=== PATIENT | male | born 1945 | race Caucasian/White ===

== ENCOUNTER 2016-05-06 16:04 | Inpatient (IN) ==
--- NOTE | 2016-05-06 16:22 | Emergency Department Note ---
Disposition Clinical Impression: Near syncope, Bradycardia Disposition: Admitted As Inpatient Condition: Fair Referrals: NO,PCP [Primary Care Provider] - Forms: ED Satisfaction Letter Time of Disposition: 17:29 Syncope HPI - General Chief Complaint: ED Syncope Stated Complaint: Dizzy Spells Time Seen by Provider: 05/06/16 16:12 Source: patient, family Mode of arrival: ambulatory Limitations: no limitations Nursing Notes Reviewed: Yes Vital Signs Reviewed: Yes - History of Present Illness HPI Narrative: 70-year-old male who was at home watching TV tried to get up and suffered a near syncopal episode and became lightheaded and felt like he was given a pass out. And lasted for about 30 minutes. He continues to feel weak and a little bit lightheaded. He does have a pacemaker defibrillator. Pt Subjective Complaint: felt faint, almost passed out Onset (ago): Just [employer] Duration: minutes(s) Prodromal Symptoms: none Witnessed: yes - by bystander Context: standing up Injuries Sustained Associated with Event: none Current Symptoms: lightheaded History: none Treatments prior to arrival: none Associated trauma secondary to event: No - Related Data Allergies Allergy/AdvReac Type Severity Reaction Status Date / Time No Known Allergies Allergy Verified 05/06/16 16:19 Constitutional: Reports: weakness. Denies: fever, chills, weight change Eyes: Denies: eye pain, eye discharge, vision change ENT ED: Denies: ear pain, throat pain, dental pain, hearing loss, epistaxis, congestion, dysphagia Cardiovascular: Denies: chest pain, palpitations, dyspnea on exertion, edema, syncope Respiratory: Denies: cough, dyspnea, wheezes, hemoptysis, stridor Gastrointestinal: Denies: abdominal pain, nausea, vomiting, diarrhea, constipation, hematemesis, melena, hematochezia Genitourinary: Denies: urgency, dysuria, frequency, hematuria Musculoskeletal: Denies: back pain, neck pain, arthralgia, myalgia Integumentary: Denies: rash, abrasion, lesions Neurological: Reports: vertigo, other (Near-syncope). Denies: headache, weakness, numbness, paresthesias, confusion, abnormal gait Psychiatric: Denies: anxiety, depression, suicidal thoughts, homicidal thoughts , auditory hallucinations, visual hallucinations Endocrine: Denies: fatigue Hematological/Lymphatic: Denies: easy bleeding, easy bruising Allergic/Immunologic: Denies: facial swelling, urticaria Past Medical History - Past Medical History Medical history: Reports: hypertension, other Psychiatric history: Reports: no psych history - Social History Smoking Status: Never smoker Smokeless Tobacco Status: No Alcohol use: Reports: none Drug use: Reports: none Physical Exam - General Limitations: no limitations General appearance: alert, in no apparent distress - Head Head exam: atraumatic, normocephalic, normal inspection - Eye Eye exam: Present: normal appearance, PERRL, EOMI - ENT ENT exam: normal exam, normal oropharynx, mucous membranes moist - Neck Neck exam: Present: normal inspection, full ROM, trachea midline - Chest Chest inspection: Present: normal inspection, symmetric chest wall rise - Respiratory Respiratory exam: Present: normal lung sounds bilaterally - Cardiovascular Cardiovascular exam: Present: regular rate, normal rhythm, normal heart sounds - Abdominal Exam Abdominal exam: Present: soft, Non-Tender. Absent: tenderness, distention, guarding, rebound, rigidity - Extremities Exam Extremities exam: Present: normal inspection, full ROM. Absent: tenderness, pedal edema - Expanded Lower Extremity Exam Neurovascular/Tendon exam: Absent: motor deficit, sensory deficit, tendon deficit Gait: observed and normal - Back Exam Back exam: Present: normal inspection, full ROM. Absent: tenderness - Neurological Exam Neurological exam: Present: alert, oriented X3 - Psychiatric Psychiatric exam: Present: normal affect, normal mood - Skin Skin exam: Present: warm, dry, intact, normal color Course Course Narrative: 70-year-old who had an episode of near syncope with bradycardia as showing on his EKG. She does have a pacemaker. Will admit for observation. - Consultations Consultation #1: Discussed with Dr. Alvarez, admit to hospitalist. Time: 17:27 Consultation #2: Discussed with Dr. Noble, admit. Time: 17:43 Vital Signs Temperature 95.1 F L 05/06/16 16:06 Pulse Rate 50 05/06/16 16:06 Respiratory Rate 14 05/06/16 16:06 Blood Pressure 160/84 05/06/16 16:06 O2 Sat by Pulse Oximetry 98 05/06/16 16:06 Temperature 95.1 F L 05/06/16 16:06 Pulse Rate 56 05/06/16 17:03 Respiratory Rate 16 05/06/16 17:03 Blood Pressure 124/66 05/06/16 17:03 O2 Sat by Pulse Oximetry 96 05/06/16 17:03 Oxygen Delivery Oxygen Delivery Room Air Syncope - Lab Data Lab results reviewed: Yes I reviewed the patient's lab results. Result diagrams: 05/06/16 16:33 05/06/16 16:33 Lab Results 05/06/16 05/06/16 05/06/16 Range/Units 16:33 16:33 16:33 WBC 4.4 (4.3-11.1) K/mcL RBC 4.54 (4.19-5.50) M/mcL Hgb 13.6 (12.9-16.9) g/dL Hct 40.0 (37.5-50.1) % MCV 88.1 (83.0-100.0) fL MCH 30.0 (28.0-33.3) pg MCHC 34.0 (31.6-35.5) g/dL RDW 12.3 (11.5-14.5) % Plt Count 125 L (140-400) K/mcL MPV 10.0 (9.4-12.4) fL Immature Gran % 1.1 (0-4) % Seg Neutrophils % 66.2 % Lymphocytes % 19.6 % Monocytes % 8.7 % Eosinophils % 3.9 % Basophils % 0.5 % Neutrophils # 2.9 (1.6-8.9) K/mcL Lymphocytes # 0.9 (0.6-4.6) K/mcL Monocytes # 0.4 (0.0-1.3) K/mcL Eosinophils # 0.2 (0.0-0.6) K/mcL Basophils # 0.0 (0.0-0.2) K/mcL Immature Plt Fraction 4.7 (1.1-6.1) % PT 11.2 (9.4-12.1) Seconds INR 1.0 APTT 25.9 L (26.0-36.0) Seconds Sodium 140 (136-145) mEq/L Potassium 4.0 (3.5-4.5) mEq/L Chloride 105 (98-109) mEq/L Carbon Dioxide 28 (19-29) mEq/L BUN 22 (8-26) mg/dL Creatinine 0.72 (0.72-1.25) mg/dL Est GFR ( Amer) > 60 (> 60) Est GFR (Non-Af Amer) > 60 (> 60) BUN/Creatinine Ratio 31 H (6-26) Glucose 134 H (70-99) mg/dL Calculated Osmolality 295 (280-300) Calcium 8.9 (8.6-10.8) mg/dL Troponin I (0-0.03) ng/mL 05/06/16 Range/Units 16:33 WBC (4.3-11.1) K/mcL RBC (4.19-5.50) M/mcL Hgb (12.9-16.9) g/dL Hct (37.5-50.1) % MCV (83.0-100.0) fL MCH (28.0-33.3) pg MCHC (31.6-35.5) g/dL RDW (11.5-14.5) % Plt Count (140-400) K/mcL MPV (9.4-12.4) fL Immature Gran % (0-4) % Seg Neutrophils % % Lymphocytes % % Monocytes % % Eosinophils % % Basophils % % Neutrophils # (1.6-8.9) K/mcL Lymphocytes # (0.6-4.6) K/mcL Monocytes # (0.0-1.3) K/mcL Eosinophils # (0.0-0.6) K/mcL Basophils # (0.0-0.2) K/mcL Immature Plt Fraction (1.1-6.1) % PT (9.4-12.1) Seconds INR APTT (26.0-36.0) Seconds Sodium (136-145) mEq/L Potassium (3.5-4.5) mEq/L Chloride (98-109) mEq/L Carbon Dioxide (19-29) mEq/L BUN (8-26) mg/dL Creatinine (0.72-1.25) mg/dL Est GFR ( Amer) (> 60) Est GFR (Non-Af Amer) (> 60) BUN/Creatinine Ratio (6-26) Glucose (70-99) mg/dL Calculated Osmolality (280-300) Calcium (8.6-10.8) mg/dL Troponin I 0.00 (0-0.03) ng/mL - Radiology Data Radiology results reviewed: Yes I reviewed the patient's radiology results. Chest X-Ray 05/06/16 16:13 IMPRESSION: Negative portable chest. D/ / Rg Calvo MD / Rg Calvo MD Interpreting Provider: Rg Calvo MD Head CT 05/06/16 16:13 IMPRESSION: No acute intracranial abnormality. D/ / Vaughn Yancey MD / Vaughn Yancey MD Interpreting Provider: Vaughn Yancey MD - EKG Data EKG attestation: Yes I reviewed and interpreted this EKG. EKG results narrative: Paced rhythm with a ventricular rate of 50
[2016-05-06 16:39] LABS: Basophils % 0.5 %; Eosinophils # 0.2 K/mcL (0.0-0.6); Eosinophils % 3.9 %; Hemoglobin 13.6 g/dL (12.9-16.9); Immature Granulocytes % 1.1 % (0-4); Immature Platelets 4.7 % (1.1-6.1); Lymphocytes # 0.9 K/mcL (0.6-4.6); Lymphocytes % 19.6 %; Mean Corpuscular Volume 88.1 fL (83.0-100.0); Monocytes # 0.4 K/mcL (0.0-1.3); Monocytes % 8.7 %; Neutrophils # 2.9 K/mcL (1.6-8.9); Platelet Count 125 K/mcL (140-400); Red Blood Count 4.54 M/mcL (4.19-5.50); Red Cell Distribution Width 12.3 % (11.5-14.5); Segmented Neutrophils % 66.2 %
[2016-05-06 16:43] LABS: Prothrombin Time 11.2 Seconds (9.4-12.1)
[2016-05-06 16:46] LABS: Activated Partial Thrombo Time 25.9 Seconds (26.0-36.0)
[2016-05-06 16:50] LABS: BUN/Creatinine Ratio 31 (6-26); Blood Urea Nitrogen 22 mg/dL (8-26); Calcium 8.9 mg/dL (8.6-10.8); Carbon Dioxide 28 mEq/L (19-29); Chloride 105 mEq/L (98-109); Glucose 134 mg/dL (70-99); Osmolality,Calculated 295 (280-300); Sodium 140 mEq/L (136-145); eGFR For African Americans > 60 (> 60); eGFR For Non-African Americans > 60 (> 60)
--- NOTE | 2016-05-06 19:57 | Internal Med History&Physical ---
<Steven Isaacs - Last Filed: 05/06/16 20:23> Date of Encounter: 05/06/16 Time of Encounter: 07:40 Assessment and Plan (1) Bradycardia Current visit: Yes Status: Acute The patient has a pacemaker with AICD, which was placed after he was found to have ischemic cardiomyopathy. His EKG demonstrated a paced rhythm with a ventricular rate of 50. Patient had a near syncopal episode from standing up too quickly. He is asymptomatic at this time and resting comfortably. Atropine PRN. Cardiology notified for pacemaker interrogation. (2) Near syncope Current visit: Yes Status: Acute Secondary to bradycardia. Head CT: No acute intracranial abnormality. Patient continues to have dizziness when standing to go to the bathroom. Fall precautions ordered. (3) Essential hypertension Current visit: Yes Status: Acute The patient is currently well controlled at 125/70. Continue home dose of lisinopril. Hold home dose of metoprolol due to symptomatic bradycardia. (4) Coronary artery disease Current visit: Yes Status: Acute Stent placed in 2007. Continue plavix. Continue aspirin. Continue atorvastatin. Qualifiers: Coronary Disease-Associated Artery/Lesion type: [place] artery [place] vs. transplanted heart: [place] heart Associated angina: without angina Qualified Code(s): I25.10 - Atherosclerotic heart disease of [place] coronary artery without angina pectoris (5) Ischemic cardiomyopathy Current visit: No Status: Chronic History of ischemic cardiomyopathy requiring pacemaker with AICD. (6) GERD (gastroesophageal reflux disease) Current visit: Yes Status: Acute Continue prilosec. Qualifiers: Esophagitis presence: without esophagitis Qualified Code(s): K21.9 - Gastro -esophageal reflux disease without esophagitis (7) DVT prophylaxis Current visit: Yes Status: Acute Heparin SQ Internal Medicine - H&P: HPI Chief complaint: near syncope Admitted From: Emergency Dept Plans for Post Hospital Care: Home History of present illness: Mr. Muñiz is a 70 year old male with past medical history significant for hypertension, CAD, ischemic cardiomyopathy, and GERD who presented to the emergency department with a near syncopal episode. The patient states that he was sitting on the couch watching tv and then stood up suddenly causing him to feel light headed and like all of his senses were blurry. He states that he did not have any chest pain, shortness of breath, or nausea during this episode. He states he has had similar episodes in the past, but never as severe as this. He reports that when he stood outside in the cool air after about 30 minutes from the onset of his symptoms they all resolved. He reports after coming to the emergency department and feeling very warm his symptoms began to return, but not to the same extent as the first onset. The patient reports having a pacemaker with AICD and denies feeling the defibrillator go off. He denies any weight gain or swelling. Past Med Surg Social Fam HX - Past Medical History Medical history: coronary artery disease, GERD, hypertension, other (ischemic cardiomyopathy) Psychiatric history: no psych history - Past Surgical History Surgical History: angioplasty/stent (2007), pacemaker/AICD - Social History Smoking Status: Never smoker Smokeless Tobacco Status: No Alcohol use: none Drug use: none - Family History Mother Living Status: Hx Family Cardiac Disorders: Yes Father Living Status: Hx Family Cardiac Disorders: Yes Internal Medicine - H&P: Meds Allergies No Known Allergies Allergy (Verified 05/06/16 16:19) All Systems PM: A 10-system review of systems was performed and is negative for pertinent findings except as documented above in the HPI. - Constitutional Constitutional: weakness, no chills, no fever(s), no night sweats - EENT Eyes: no change in vision, no discharge, no pain, no photophobia Ears: no ear discharge, no ear pain, no tinnitus Nose, mouth and throat: no dysphagia, no nasal discharge, no neck pain, no sore throat - Cardiovascular Cardiovascular ROS IM: lightheadedness, no chest pain, no diaphoresis, no dyspnea, no palpitations, no syncope Additional comments: near syncope - Respiratory Respiratory: no cough, no dyspnea, no wheezing, no excessive phlegm production - Gastrointestinal Gastrointestinal: no abdominal pain, no diarrhea, no hematemesis, no hematochezia, no melena, no nausea, no vomiting - Musculoskeletal Musculoskeletal ROS IM: no numbness, no tingling - Integumentary Integumentary IM: no rash, no unusual bruising - Neurological Neurological ROS: no confusion, no convulsions, no focal weakness, no numbness, no tingling, no tremor(s) - Hematologic/Lymphatic Hematologic/Lymphatic: no easy bruising - Constitutional Vitals: Temp Pulse Resp BP Pulse Ox 97.5 F L 51 12 125/70 95 05/06/16 19:07 05/06/16 19:07 05/06/16 19:07 05/06/16 19:07 05/06/16 19:07 General appearance: Present: A&O X 3, pleasant, no acute distress - Head Head exam: Present: atraumatic, normocephalic - Eye Eye exam: Present: EOMI, PERRL, conjuntiva pink, sclera anicteric Pupils: Present: PERRL - Neck Neck exam general surgery: Present: supple, trachea midline. Absent: lymphadenopathy - Respiratory Respiratory exam: Present: CTAB. Absent: accessory muscle use, rales, rhonchi, wheezes - Cardiovascular Cardiovascular exam: Present: bradycardia, +S1, +S2. Absent: diastolic murmur, gallop, rubs, systolic murmur - GI/Abdominal GI/Abdominal exam: Present: normal bowel sounds, soft, no peritoneal signs. Absent: distended, tenderness - Extremities Exam Extremities exam: Present: warm, radial pulses palpable and symetrical. Absent : calf tenderness, cyanotic, pedal edema - Neurological Exam Neurological exam: Present: CN II-XII intact, oriented X3, no focal deficits. Absent: facial droop, speech deficit - Skin Skin exam: Present: dry, intact Internal Med - H&P Results - Labs CBC & Chem 7: 05/06/16 16:33 05/06/16 16:33 - Attending Attestation I examined this patient and my medical decision-making was reviewed with the JOB SUPERINTENDENT/PA/Advanced Practice Nurse/Resident Physician. I agree with the documented findings, disposition and treatment plan as described except to the extent set forth below. <Radha Noble - Last Filed: 05/06/16 22:02> Date of Encounter: 05/06/16 Internal Medicine - H&P: HPI History of present illness: Mr. Muñiz is a 70 year old male All Systems PM: A 10-system review of systems was performed and is negative for pertinent findings except as documented above in the HPI. - Constitutional Vitals: Temp Pulse Resp BP Pulse Ox 97.5 F L 51 12 125/70 95 05/06/16 19:07 05/06/16 19:07 05/06/16 19:07 05/06/16 19:07 05/06/16 19:07 Internal Med - H&P Results - Labs CBC & Chem 7: 05/06/16 16:33 05/06/16 16:33 - Attending Attestation Patient reports of having history of orthostatic dizziness and has been advised by forge operator to slowly get up from sitting to standing position. At this time patient and nursing staff advised to maintain fall precautions. Patient currently resting comfortably, no pain or discomfort noted at this time. Cardiology to follow up in am. Will continue tele monitoring.
[2016-05-06] MEDS ORDERED: Naloxone 0.4 MG/ML INJ IVP PRN (20:19)
[2016-05-06] MEDS ORDERED: *HR* Atropine Sulfate 1 MG/10 ML SYRINGE IVP PRN (21:02)
[2016-05-06] MEDS: *HR* Heparin 5,000 UNIT/ML VIAL SQ SCH (23:39)
[2016-05-07] MEDS: *HR* Heparin 5,000 UNIT/ML VIAL SQ SCH ×3 (10:01→23:20)
[2016-05-07] MEDS: Aspirin 81 MG TAB.CHEW PO SCH (10:01)
--- NOTE | 2016-05-07 10:31 | Event Note ---
Date of Encounter: 05/07/16 Time of Encounter: 10:15 - Cardiology Event Note Cardiology consult for bradycardia and near syncope with request for pacer/ICD interrogation. Patient has [employer] device. Patient and seen today , he is currently asymptomatic. Discussed with primary service, plan to proceed with ICD/pacer interrogation tomorrow with further recommendations pending results. Dr. Alvarez agrees with plan.
--- NOTE | 2016-05-07 13:20 | Internal Med Progress Note ---
<Carlyle Oliver - Last Filed: 05/07/16 13:31> Date of Encounter: 05/07/16 Time of Encounter: 13:17 - Assessment and plan (1) Near syncope Current Visit: Yes Status: Acute Assessment and plan: 70-year-old male history of hypertension, ischemia cardiomyopathy, coronary artery disease, heart failure with ejection fraction 20% , with AICD and pacemaker presents with complaints of near syncope. Patient had a 30 minute episode of days and complete loss of sensation, and weakness while watching TV. He describes this as 'he could not control his body'. Differential diagnosis includes TIA, stroke. CT of the head was negative for any acute changes. X- ray was negative for any acute changes. Patient's vitals are within normal limit. Patient cannot undergo MRI due to pacemaker defibrillator. We have consulted neurology. We will also obtain an echocardiogram and carotid ultrasounds. Previous lipid panel 2 months ago shows LDL cholesterol at 97 and total cholesterol 164. We will continue patient's aspirin, atorvastatin, Plavix. Continue cardiac diet. (2) Coronary artery disease Current Visit: Yes Status: Acute Assessment and plan: Patient has global ischemic cardiomyopathy. Last echocardiogram in 2013 showed EF of 20%. He has a pacemaker and defibrillator followed by Dr. Mcgowan outpatient. His last pacemaker and defibrillator check was exactly one month back showing no abnormalities. Patient's EKG showed a paced rhythm with a ventricular rate of 50. We will obtain a repeat echocardiogram. Cardiology was consult and will recheck defibrillator /pacemeker for any abnormalities. Continue aspirin Plavix and statin. Qualifiers: Coronary Disease-Associated Artery/Lesion type: [place] artery [place] vs. transplanted heart: [place] heart Associated angina: without angina Qualified Code(s): I25.10 - Atherosclerotic heart disease of [place] coronary artery without angina pectoris (3) DVT prophylaxis Current Visit: Yes Status: Acute Assessment and plan: Patient is on heparin and EPCDs for anticoagulation. (4) Essential hypertension Current Visit: Yes Status: Acute Assessment and plan: Patient takes lisinopril outpatient for control his blood pressure. Since admission his blood pressure has been averaging 110/60. We will lisinopril and patient. (5) GERD (gastroesophageal reflux disease) Current Visit: Yes Status: Acute Assessment and plan: Patient has a history of gastric reflux disease. He takes omeprazole at home. We will continue omeprazole. He denies any epigastric pain. He is tolerating oral intake. Qualifiers: Esophagitis presence: without esophagitis Qualified Code(s): K21.9 - Gastro -esophageal reflux disease without esophagitis (6) Ischemic cardiomyopathy Current Visit: No Status: Chronic Assessment and plan: Patient has a history of ischemic cardiomyopathy requiring pacemaker and defibrillator. We will obtain a repeat echocardiogram to evaluate ejection fraction. Currently denies any chest pain. - Subjective Interval history: Mr. Morse is a 70-year-old male who presented with complaints of dizziness. Patient says yesterday he was watching TV when he stood up and felt as if he was in a daze. He said he had complete loss of sensation of his body. He had never had this type of symptoms before. Patient then sat back down and it took about 30 minutes before he started feeling back to normal. He then said he walked to his garage where the cold air finally made him feel like his normal self. Patient has had dizziness in the past but this was unlike his past dizziness. During my evaluation today patient denies these symptoms. He denies chest pain, palpitations, shortness of breath, cough, chills, numbness, tingling, weakness, abdominal pain, nausea, vomiting, diaphoresis. - Constitutional Vitals: Temp Pulse Resp BP Pulse Ox 97.3 F L 55 14 112/63 95 05/07/16 11:09 05/07/16 11:09 05/07/16 11:09 05/07/16 11:09 05/07/16 11:09 General appearance: Present: A&O X 3, pleasant, no acute distress - Neck Neck exam general surgery: Present: supple, trachea midline. Absent: lymphadenopathy - Respiratory Respiratory exam: Present: CTAB. Absent: accessory muscle use, rales, rhonchi, wheezes - Cardiovascular Cardiovascular exam: Present: RRR, +S1, +S2. Absent: diastolic murmur, gallop, rubs, systolic murmur - GI/Abdominal GI/Abdominal exam: Present: normal bowel sounds, soft, no peritoneal signs. Absent: distended, tenderness - Extremities Exam Extremities exam: Present: warm, radial pulses palpable and symetrical. Absent : calf tenderness, cyanotic, pedal edema - Neurological Exam Neurological exam: Present: alert, CN II-XII intact, oriented X3, no focal deficits, strengths equal and symetr throughout. Absent: motor sensory deficit , pronater drift, facial droop, speech deficit Internal Medicine: Result - Labs CBC & Chem 7: 05/06/16 16:33 05/06/16 16:33 - ABG Interpretation ABG results: PT/INR, D-dimer PT 11.2 Seconds (9.4-12.1) 05/06/16 16:33 Consult Discharge Plan - Plan Referrals: Nuzhat Hernandez DO [Primary Care Provider] - <Butch Reyes - Last Filed: 05/07/16 18:30> Date of Encounter: 05/07/16 - Constitutional Vitals: Temp Pulse Resp BP Pulse Ox 97.2 F L 59 14 119/66 95 05/07/16 15:06 05/07/16 15:06 05/07/16 15:06 05/07/16 15:06 05/07/16 15:06 Internal Medicine: Result - Labs CBC & Chem 7: 05/06/16 16:33 05/06/16 16:33 - ABG Interpretation ABG results: PT/INR, D-dimer PT 11.2 Seconds (9.4-12.1) 05/06/16 16:33 - Attending Attestation I examined this patient and my medical decision-making was reviewed with the COMMUTATOR UNDERCUTTER/PA/Advanced Practice Nurse/Resident Physician. I agree with the documented findings, disposition and treatment plan as described except to the extent set forth below.
[2016-05-08 05:08] LABS: Hematocrit 40.8 % (37.5-50.1); Hemoglobin 13.9 g/dL (12.9-16.9); Mean Corpuscular HGB Conc 34.1 g/dL (31.6-35.5); Mean Corpuscular Volume 88.1 fL (83.0-100.0); Mean Platelet Volume 10.9 fL (9.4-12.4); Platelet Count 124 K/mcL (140-400); Red Blood Count 4.63 M/mcL (4.19-5.50); Red Cell Distribution Width 12.5 % (11.5-14.5)
[2016-05-08 05:11] LABS: BUN/Creatinine Ratio 29 (6-26); Blood Urea Nitrogen 21 mg/dL (8-26); Carbon Dioxide 25 mEq/L (19-29); Chloride 106 mEq/L (98-109); Glucose 98 mg/dL (70-99); Osmolality,Calculated 293 (280-300); Potassium 4.1 mEq/L (3.5-4.5); Sodium 140 mEq/L (136-145); eGFR For African Americans > 60 (> 60); eGFR For Non-African Americans > 60 (> 60)
[2016-05-08] MEDS: *HR* Heparin 5,000 UNIT/ML VIAL SQ SCH ×2 (10:39→16:48)
[2016-05-08] MEDS: Aspirin 81 MG TAB.CHEW PO SCH (10:39)
--- NOTE | 2016-05-08 11:00 | Neurology - Consult Note ---
<Jose Corado - Last Filed: 05/08/16 12:25> Date of Encounter: 05/08/16 Time of Encounter: 11:10 Assessment and Plan (1) Vertebrobasilar insufficiency Status: Acute Patient gives a history concerning for vertebrobasilar insufficiency. He reports symptoms for roughly 30minutes with dizziness and resolution afterwards. He has been bradycardic recently and his metoprolol was increased. Patient has a pacemaker d/t afib and is being evaluated by cardiology. The patient's pacemaker precludes him from MRI so we will proceed with CTA of the neck for evaluation of the posterior circulation. History of Present Illness Chief complaint: Dizziness HPI: Mr. Muñiz is a 70 year old male with history of hypertension, atrial fibrillation on aspirin and Plavix who initially presented to the emergency department due to dizziness and loss of sensation. Patient reports he was sitting at home watching TV. He states that out of no where it felt like he lost all sensation to his body. He reports that this alarmed him and made him nervous. He states he went to stand up and that he also felt dizzy at that time. He reports having history of dizziness which was eventually attributed to his atrial fibrillation and hypotension but that this episode did not feel like his previous episodes. Patient states that it lasted for roughly 30 minutes and went away on its own. He states that being outside in the cold air seemed to help his symptoms. Patient was evaluated in the emergency department where he had a normal head CT scan. He was also found to be bradycardic in the 50s and was admitted. Patient reports that a few weeks ago his beta thierry was increased. Patient has had no recurrence of symptoms since admission. He denies headaches, visual changes, seizure-like activity, numbness, tingling. Significant other at bedside reports that there was no seizure-like activity during the episode and that he just seemed very nervous. No other complaints. Past Med Surg Social Fam HX - Past Medical History Attestation: Yes The following information was validated with the patient. Source: patient Medical history: coronary artery disease, GERD, hypertension, other Psychiatric history: no psych history - Past Surgical History Surgical History: angioplasty/stent, pacemaker/AICD - Social History Smoking Status: Never smoker Smokeless Tobacco Status: No Alcohol use: rarely Drug use: none - Family History Mother Name: Alisha Muñiz Living Status: Age at : 76 Cause of : "old age" Hx Family Cardiac Disorders: Yes (Open heart surgery. HTN) Hx Family Respiratory Disorders: No Hx Family Cancer: No Hx Family GI Disorders: No (Gastroenteritis) Hx Family Genitourinary Disorders: No Hx Family Endocrine Disorder: Yes (DM) Hx Family Musculoskeletal Disorders: No Hx Family Neuromuscular Disorders: No Hx Family Neurologic Disorders: No Hx Family HEENT Disorders: No Hx Family Autoimmune Disorders: No Hx Family Reproductive Disorders: No Hx Family Psychosocial Disorders: No Hx Family Medical Disorders: No Father Living Status: Hx Family Cardiac Disorders: Yes Medications and Allergies Aspirin [Lo-Dose Aspirin EC] 81 mg PO DAILY 05/07/16 [History] Atorvastatin Calcium [Lipitor] 80 mg PO DAILY 05/07/16 [History] Clopidogrel [Plavix] 75 mg PO DAILY 05/07/16 [History] FluocinoNIDE 0.05% CRM [Lidex] 1 appl TP BID 05/07/16 [History] L. Acidophilus/Bifid. Animalis [One-A-Day Trubiotics Capsule] 1 cap PO DAILY 12/14 [History] Multivit-Min/FA/Lycopen/Lutein [Centrum Silver Tablet] 1 tab PO DAILY 05/07/16 [ History] Mupirocin 1 appl TP BID 05/07/16 [History] Omeprazole [PriLOSEC] 20 mg PO DAILY 05/07/16 [History] Metoprolol [Lopressor] 75 mg PO BID #90 tablet 05/08/16 [Rx] Allergies No Known Allergies Allergy (Verified 05/06/16 16:19) All Systems: A 10-system review of systems was performed and is negative for pertinent findings except as documented above in the HPI. - Constitutional Constitutional ROS IM: no fever(s), no weakness - Cardiovascular Cardiovascular ROS IM: no chest pain, no palpitations - Respiratory Respiratory IM: no dyspnea - Neurological Neurological ROS: dizziness (Now resolved), no abnormal speech, no convulsions, no focal weakness, no numbness, no sensory deficit, no syncope, no weakness Physical Examination - Vital Signs Vital Signs: Initial Vital Signs Temp Pulse Resp BP Pulse Ox 95.1 F L 50 14 160/84 98 05/06/16 16:06 05/06/16 16:06 05/06/16 16:06 05/06/16 16:06 05/06/16 16:06 - Constitutional General appearance: comfortable - Neurologic Sensorimotor examination: intact Detailed motor examination: grossly full strength in all extremities Detailed sensory examination: intact, light touch Mental Status Examination: awake, alert, oriented to person, oriented to place, oriented to time, follows commands appropriately, answers questions appropriately, no aphasia, no aproxia Cranial nerve examination: PERRL, EOMI, sensory to face intact, mastication intact, no facial asymmetry is present, no dysarthria, hearing is intact symmetrically Cerebellar examination: no dysmetria, performs finger to nose and heel to pat symmetrically without ataxia Results - Laboratory Findings CBC and BMP: 05/08/16 03:45 05/08/16 03:45 Abnormal lab findings: Abnormal lab results Plt Count 124 K/mcL (140-400) L 05/08/16 03:45 APTT 25.9 Seconds (26.0-36.0) L 05/06/16 16:33 BUN/Creatinine Ratio 29 (6-26) H 05/08/16 03:45 Consult Discharge Plan - Plan Instructions: Metoprolol (By mouth), Syncope (GEN), Bradycardia (GEN) Referrals: Farhat Meeks, [employer] [Advanced Practice Nurse] - 05/22/16 12:00 pm (Alex Clevinger ) Nuzhat Hrenandez DO [Primary Care Provider] - 05/16/16 2:15 pm Prescriptions: Metoprolol [Lopressor] 75 mg PO BID #90 tablet <Sylvia Moreno I - Last Filed: 05/08/16 20:30> Date of Encounter: 05/08/16 Assessment and Plan (1) Near syncope Status: Acute Pt seen and examined agreed with Dr Corado assessment and findings. I susupect his symptoms are likely related to Hypoperfusion, related to Low heart rate and perhaps Blood pressure, with his Cardiomyopathy and low EF the main reason for his symptoms, CTA of neck is already negative for any critical Stenosis, he is already on anticoagulation, do not think adding another agent would make any difference, suggest to increase fluid intake if possible, and avoid sudden change in posture , Sylvia Moreno MD History of Present Illness HPI: Mr. Muñiz is a 70 year old male All Systems: A 10-system review of systems was performed and is negative for pertinent findings except as documented above in the HPI. Physical Examination - Vital Signs Vital Signs: Initial Vital Signs Temp Pulse Resp BP Pulse Ox 95.1 F L 50 14 160/84 98 05/06/16 16:06 05/06/16 16:06 05/06/16 16:06 05/06/16 16:06 05/06/16 16:06 Results - Laboratory Findings CBC and BMP: 05/08/16 03:45 05/08/16 03:45 Abnormal lab findings: Abnormal lab results Plt Count 124 K/mcL (140-400) L 05/08/16 03:45 APTT 25.9 Seconds (26.0-36.0) L 05/06/16 16:33 BUN/Creatinine Ratio 29 (6-26) H 05/08/16 03:45
[2016-05-08 11:52] VITALS: BP 128/74
--- NOTE | 2016-05-08 12:23 | Electrocardiograph Report ---
[facility] Test Date: 2016-05-06 Pat Name: LIA VILLAGRAN Department: 105 Room: 3B13 Gender: M Slate Mixer: DENIA : 1945 Requested By: Luis Burris Order Number: [id number] Reading MD: Dillon Morrow DO Measurements Intervals [place] Rate: 50 P: 202 CA: 246 QRS: -55 QRSD: 193 T: 126 QT: 521 QTc: 493 Interpretive Statements AV sequential pacemaker Electronically Signed On 05-08-16 12:21:34 EST by Dillon Morrow DO
--- NOTE | 2016-05-08 12:28 | Cardiology Consult Note ---
Date of Encounter: 05/08/16 Time of Encounter: 12:00 Assessment and Plan (1) Near syncope Current Visit: Yes Status: Acute Per Cardiology: Undergoing evaluation for near syncope. Echocardiogram and carotid duplex pending. Head CT negative, neck CTA negative. Dual chamber ICD interrogation completed with no evidence of ventricular arrhythmias with no episodes of ATP or defibrillations since recent BB increase. Additionally, pacer with low setting at 50. Telemetry with no significant episodes of bradycardia. Device properly functioning-- discussed with Dr. Jhonny Mcgowan with no adjustments recommended. Systolic blood pressure noted to be 100s to 120s. Will dc low dose ACEI for now. Patient was not keeping blood pressure checks at home with higher dose of beta thierry recently adjusted. Discussed with Dr. Burns, will resume previous Lopressor 75 mg by mouth twice a day. Recommend keep heart rate and blood pressure log at time of discharge with increased dose of beta thierry. If continues to have episodes suspicious for low BP, may need BB stopped and amiodarone considered for his NSVT. (2) Bradycardia Current Visit: Yes Status: Acute Per Cardiology: EKG demonstrated a paced rhythm. HR currently in to 60's. Patient had a near syncopal episode from standing up too quickly. He is asymptomatic at this time and resting comfortably. Low threshold set at 50 bpm. Do not suspect bradycardia causing his presyncope. Again, reviewed with Dr. Mcgowan with no ICD changes recommended. (3) Ischemic cardiomyopathy Current Visit: No Status: Chronic Per Cardiology: History of ischemic cardiomyopathy with dual chamber ICD. Last known EF 20% November 2013. Euvolemic on exam. Current echo pending. (4) Coronary artery disease Current Visit: Yes Status: Acute Per Cardiology: History CAD with stenting in 2007. Troponin negative at 0.00. On aspirin, Plavix , statin, and beta thierry. Will DC MARGARITA inhibitor for now. Qualifiers: Coronary Disease-Associated Artery/Lesion type: [place] artery [place] vs. transplanted heart: [place] heart Associated angina: without angina Qualified Code(s): I25.10 - Atherosclerotic heart disease of [place] coronary artery without angina pectoris Discussion w patient/family: The assessment and plan as outlined above was discussed with the patient and/or family members who expressed understanding and agreement. All questions were answered. Thank you for involving us in the care of your patient. Please call with any questions. History of Present Illness Consult date: 05/08/16 Requesting physician: Butch Reyes Consult reason: Dizziness, For ICD/Pacer check Chief complaint: Dizziness History of present illness: Mr. Muñiz is a 70 year old male with a relevant past medical history of ischemic cardiomyopathy with BiV ICD, GERD, hypertension, hyperlipidemia, CAD. Recently seen by Dr. Jhonny Mcgowan March 2016 after device check showing 3 episodes of successful ATP for nonsustained VT. At last appointment had metoprolol dose increased to 75 mg by mouth twice a day. Patient reports no difficulties up until Sunday afternoon. He reports standing up he developed episode of dizziness with a "weird sensation throughout his head ". He denied any facial drooping, slurred speech, confusion , weakness to one side. Denies any loss of consciousness or fall. Reports symptoms persisted for a few minutes initially subsided. Reports walking up his car had a mild recurrence and came to the ER. Denies any further events during hospital stay. reports blood pressure systolically at time of that event when the 170s. He reports compliance with medications. Reports has not been checking blood pressures home. Denies any palpitations or ICD shocks. He actually reports his palpitations have settled down with increased dose of beta thierry. Past Med Surg Social Fam HX - Past Medical History Attestation: Yes The following information was validated with the patient. Source: patient, old records reviewed, obtained from family Medical history: coronary artery disease, GERD, hypertension, other Psychiatric history: no psych history - Past Surgical History Surgical History: angioplasty/stent, pacemaker/AICD - Social History Smoking Status: Never smoker Smokeless Tobacco Status: No Alcohol use: rarely Drug use: none - Family History Mother Name: Alisha Muñiz Living Status: Age at : 76 Cause of : "old age" Hx Family Cardiac Disorders: Yes (Open heart surgery. HTN) Hx Family Respiratory Disorders: No Hx Family Cancer: No Hx Family GI Disorders: No (Gastroenteritis) Hx Family Genitourinary Disorders: No Hx Family Endocrine Disorder: Yes (DM) Hx Family Musculoskeletal Disorders: No Hx Family Neuromuscular Disorders: No Hx Family Neurologic Disorders: No Hx Family HEENT Disorders: No Hx Family Autoimmune Disorders: No Hx Family Reproductive Disorders: No Hx Family Psychosocial Disorders: No Hx Family Medical Disorders: No Father Living Status: Hx Family Cardiac Disorders: Yes Medications and Allergies Aspirin [Lo-Dose Aspirin EC] 81 mg PO DAILY 05/07/16 [History] Atorvastatin Calcium [Lipitor] 80 mg PO DAILY 05/07/16 [History] Clopidogrel [Plavix] 75 mg PO DAILY 05/07/16 [History] FluocinoNIDE 0.05% CRM [Lidex] 1 appl TP BID 05/07/16 [History] L. Acidophilus/Bifid. Animalis [One-A-Day Trubiotics Capsule] 1 cap PO DAILY 12/14 [History] Lisinopril [Zestril] 2.5 mg PO DAILY 05/07/16 [History] Metoprolol [Lopressor] 75 mg PO BID 05/07/16 [History] Multivit-Min/FA/Lycopen/Lutein [Centrum Silver Tablet] 1 tab PO DAILY 05/07/16 [ History] Mupirocin 1 appl TP BID 05/07/16 [History] Omeprazole [PriLOSEC] 20 mg PO DAILY 05/07/16 [History] Allergies No Known Allergies Allergy (Verified 05/06/16 16:19) All Systems Review: A 10-system review of systems was performed and is negative for pertinent findings except as documented above in the HPI. - Cardiovascular Cardiovascular: as per HPI, lightheadedness - Neurological Neurological: dizziness, focal weakness Physical Examination Vital Signs, Last 4 Hours Temp Pulse Resp BP Pulse Ox 05/08/16 11:49 97.4 F L 63 16 128/74 94 L General: Conversant, No Apparent Distress HEENT: Atraumatic, Normocephaly, Mucus Membranes Moist Neck: No JVD, Normal carotid pulses Cardiac: Reg Rate and Rhythm, Normal S1 and S2, No Murmur Lungs: Normal Breath Sounds, No Wheeze, Rales, Rhonchi Neuro: Alert and responsive, No focal deficits noted Abdomen: Soft, Non-Tender Skin: No rashes noted on visualized skin Musculoskeletal: No Chest Wall Tenderness Extremities: No Edema, Normal Pulses Results 05/08/16 03:45 05/08/16 03:45 Lab Results Laboratory Tests 05/06/16 05/06/16 16:33 16:33 INR 1.0 Troponin I 0.00 ITS Impressions Chest X-Ray 05/06/16 16:13 IMPRESSION: Negative portable chest. D/ / Rg Calvo MD / Rg Calvo MD Interpreting Provider: Rg Calvo MD Head CT 05/06/16 16:13 IMPRESSION: No acute intracranial abnormality. D/ / Vaughn Yancey MD / Vaughn Yancey MD Interpreting Provider: Vaughn Yancey MD Neck CTA 05/08/16 12:14 IMPRESSION: 1. Unremarkable CTA of the neck. No evidence of a flow-limiting stenosis or dissection. D/ / 05/08/2016 13:31:17 Justice Fitzpatrick MD / Beth Huston Interpreting Provider: Justice Fitzpatrick MD Active Medications Aspirin (Aspirin) 81 mg PO DAILY [facility] Stop: 11/06/16 09:01 Last Admin: 05/08/16 10:39 Dose: 81 mg Atorvastatin Calcium (Lipitor) 80 mg PO HS [facility] Stop: 11/05/16 21:01 Last Admin: 05/07/16 21:40 Dose: 80 mg Atropine Sulfate (Atropine) 0.5 mg IVP ONCE PRN PRN Reason: symptomatic bradycardia Stop: 11/05/16 21:03 Clopidogrel Bisulfate (Plavix) 75 mg PO DAILY [facility] Stop: 11/06/16 09:01 Last Admin: 05/08/16 10:39 Dose: 75 mg Heparin Sodium (Porcine) (Heparin) 5,000 unit SQ Q8HR [facility] Stop: 11/06/16 00:01 Last Admin: 05/08/16 10:39 Dose: 5,000 unit Lisinopril (Zestril) 2.5 mg PO DAILY [facility] PRN Reason: Protocol Stop: 11/06/16 09:01 Last Admin: 05/08/16 10:38 Dose: 2.5 mg Metoprolol Tartrate (Lopressor) 75 mg PO BID [facility] Stop: 11/07/16 12:31 Naloxone HCl (Narcan) 0.4 mg IVP Q2MIN PRN PRN Reason: Opioid Reversal Stop: 11/05/16 20:20 Omeprazole (Prilosec) 20 mg PO DAILY@0630 [facility] PRN Reason: Protocol Stop: 11/06/16 06:31 Last Admin: 05/08/16 05:10 Dose: 20 mg - Imaging and Cardiology Chest Xray: report reviewed Echo: pending - EKG Interpretation EKG results cardiology: personally reviewed (paced) Consult Discharge Plan - Plan Instructions: Syncope (GEN) Referrals: Farhat Meeks CNP [Advanced Practice Nurse] - 05/22/16 12:00 pm (Alex Garciavinger ) Nuzhat Hernandez DO [Primary Care Provider] - 05/16/16 2:15 pm
--- NOTE | 2016-05-08 15:52 | Discharge Summary ---
Date of Encounter: 05/15/16 Time of Encounter: 15:48 - Discharge Diagnosis (1) Near syncope Priority: Primary Status: Acute (2) Coronary artery disease Priority: Secondary Status: Acute Qualifiers: Coronary Disease-Associated Artery/Lesion type: [place] artery [place] vs. transplanted heart: [place] heart Associated angina: without angina Qualified Code(s): I25.10 - Atherosclerotic heart disease of [place] coronary artery without angina pectoris (3) Essential hypertension Priority: Secondary Status: Acute (4) GERD (gastroesophageal reflux disease) Priority: Secondary Status: Acute Qualifiers: Esophagitis presence: without esophagitis Qualified Code(s): K21.9 - Gastro -esophageal reflux disease without esophagitis (5) DVT prophylaxis Priority: Secondary Status: Acute - Discharge Medications Prescriptions: Metoprolol [Lopressor] 75 mg PO BID #90 tablet Home Medications: Aspirin [Lo-Dose Aspirin EC] 81 mg PO DAILY 05/07/16 [History] Atorvastatin Calcium [Lipitor] 80 mg PO DAILY 05/07/16 [History] Clopidogrel [Plavix] 75 mg PO DAILY 05/07/16 [History] FluocinoNIDE 0.05% CRM [Lidex] 1 appl TP BID 05/07/16 [History] L. Acidophilus/Bifid. Animalis [One-A-Day Trubiotics Capsule] 1 cap PO DAILY 12/14 [History] Multivit-Min/FA/Lycopen/Lutein [Centrum Silver Tablet] 1 tab PO DAILY 05/07/16 [ History] Mupirocin 1 appl TP BID 05/07/16 [History] Omeprazole [PriLOSEC] 20 mg PO DAILY 05/07/16 [History] Metoprolol [Lopressor] 75 mg PO BID #90 tablet 05/08/16 [Rx] Allergies/Adverse Reactions: Allergies No Known Allergies Allergy (Verified 05/06/16 16:19) Procedures/tests Complete & Pending: Procedures Performed prior 72 hours Category Date Time Status CTA Neck [CT angio neck] [CT] Stat Cat Scan 05/08/16 12:14 Completed EV carotid duplex imaging BI Routine Y 05/08/16 11:51 Completed EV echocardiogram Routine Y 05/08/16 11:51 Completed Date of admission: 05/07/16 08:12 Primary care physician: Nuzhat Hernandez DO Consults: 05/07/16 08:29 Consult to Cardiology [CONS] Routine Comment: Consulting Provider: Myrtle Reeves Reason for Consult: Pace maker introgation Call Completed: Yes 05/07/16 11:51 Consult to Neurology [CONS] Routine Consulting Provider: [facility] Reason for Consult: TIA Call Completed: No Discharging clinician: Butch Reyes - Patient Status Disposition: Home, Self-Care Condition: Fair Functional capacity at discharge: independent ambulation Overall status at discharge: patient is progressing back to baseline - Discharge Instructions Instructions: Metoprolol (By mouth), Syncope (GEN), Bradycardia (GEN) Follow Up With: Farhat Meeks CNP [Advanced Practice Nurse] - 05/22/16 12:00 pm (Alex Zelaya ) Nuzhat Hernandez DO [Primary Care Provider] - 05/16/16 2:15 pm - Diet and Activity Activity: increase activity as tolerated Diet: low fat, low cholesterol Interval History: Mr. Muñiz is a 70 year old male with past medical history significant for hypertension, CAD, ischemic cardiomyopathy, and GERD who presented to the emergency department with a near syncopal episode. The patient states that he was sitting on the couch watching tv and then stood up suddenly causing him to feel light headed and like all of his senses were blurry. He states that he did not have any chest pain, shortness of breath, or nausea during this episode. He states he has had similar episodes in the past, but never as severe as this. He reports that when he stood outside in the cool air after about 30 minutes from the onset of his symptoms they all resolved. He reports after coming to the emergency department and feeling very warm his symptoms began to return, but not to the same extent as the first onset. The patient reports having a pacemaker with AICD and denies feeling the defibrillator go off. He denies any weight gain or swelling. Hospital course: Mr. Muñiz is a 70 year old male was admitted. He was seen by cardiology and neurology. Neurologic things this is secondary to the hypoperfusion. Hypoperfusion is likely cause for the near syncope. Cardiology recommended stop lisinopril and increase beta thierry. Patient and family made aware to keep a log of blood pressure and pulse. Plan Patient can go home. He will follow-up with cardiology and neurology as outpatient. At the time of discharge patient does not have any question concerns. - Time Spent with Patient Total time spent providing and/or coordinating discharge services: - Constitutional Vitals: Temp Pulse Resp BP Pulse Ox 97.4 F L 63 16 128/74 94 L 05/08/16 11:49 05/08/16 11:49 05/08/16 11:49 05/08/16 11:49 05/08/16 11:49 General appearance: Present: A&O X 3, pleasant, no acute distress
--- NOTE | 2016-05-08 16:08 | ECHO - Doppler Report ---
Echo with Saline Contrast Name: Noe Muñiz Date of Study: 05/08/2016 Date: 1945 Ht: 74.0 in Medical Record#: [id number] Age: 70 Wt: 196.0 lb Gender: Male BSA: 2.15 Order #: [id number] Location: [facility] Room #: 3B13 Reading Physician: Dillon Morrow DO, QUIRINO COLLINS FASNC Boat Engine Mechanic: Brodie Singleton RN Ordering Physician: Carlyle Oliver DO Primary Physician: Nuzhat Hernandez DO Indications: Transient Ischemic Attack Impressions: LVEF 30-35%. Moderately dilated left ventricle. Global left ventricular systolic dysfunction. Atypical septal motion consistent with paced rhythm. Normal right ventricular structure and function. No evidence of PFO with agitated saline contrast. No evidence of pulmonary hypertension. A device lead was visualized in the right atrium and right ventricle. No obvious significant valvular dysfunction. Left Ventricular Wall Motion: Rest Echo Findings The apex, apical inferior, mid inferior, basal inferior, apical anterior, mid anterior, basal anterior, apical septal, mid inferior septal, basal inferior septal, apical lateral, mid anterior lateral, basal anterior lateral, mid anterior septal, mid inferior lateral, basal anterior septal and basal inferior lateral ramirez were hypokinetic. Findings: Study Quality * Technically sub-optimal due to poor echocardiographic windows. ECG Findings * Paced rhythm. Left Ventricle * LVEF 30-35%. * Moderately dilated left ventricle. * Global left ventricular systolic dysfunction. * Atypical septal motion consistent with paced rhythm. * Indeterminate diastolic function. Right Ventricle * Normal right ventricular structure and function. Left Atrium * Moderately dilated left atrium. Right Atrium * Moderately dilated right atrium. Interatrial Septum * No evidence of PFO with agitated saline contrast. Aortic Valve * Mildly calcified aortic valve leaflets. Number of leaflets cannot be determined. * No aortic regurgitation. * No aortic stenosis. Mitral Valve * Mildly thickened mitral valve leaflets. * Trace mitral regurgitation. * No mitral stenosis. Tricuspid Valve * Normal tricuspid valve structure and function. * Trace tricuspid regurgitation. * No evidence of pulmonary hypertension. Pulmonic Valve * Pulmonic valve not well visualized. Aorta * Normally sized aortic root. Pericardium * The pericardium appears normal. Device lead * A device lead was visualized in the right atrium and right ventricle. Pulmonary Artery * Normal visualized portions of the main pulmonary artery. History Hypertension Hypercholesteremia Family History of CAD History of CAD/PTCA Pacer/ICD Implant 11/30/2013 a Previous Echo was performed. Contrast: Agitated saline 20 ml. Measurements: BP: 128/ 88 2D Normal Values RVIDd: 2.50 cm <2.7 cm IVSd: 1.20 cm 0.6 - 1.0 cm LVIDd: 6.30 cm 3.7 - 5.6 cm LVPWd: 1.20 cm 0.6 - 1.1 cm LVIDs: 5.00 cm 1.5 - 3.6 cm LA: 3.20 cm 2.0 - 4.0cm %FS: 13.80 cm >25 % LVOT Diam: 2.00 cm LA volume: 91 Mitral Valve Peak E:1.04 m/sec Peak E' Lat Da:6.63 cm/s Peak E' Med Da:3.31 cm/s E/E' Lat Ratio:15.7 E/E' Med Ratio:31.4 Tricuspid Valve TV Regurg Peak Grad: 18.00mmHg TV Regurg Peak Da: 2.10m/sec Updated by Dillon Morrow DO, FACLauro, QUIRINO, FASLISA on 05/08/2016 4:00:30 PM electronically signed on 05/08/2016 4:01:27 PM with status of Final Wall Motion Oakes: 1=Normal, 2=Hypokinesis, 3=Akinesis, 4=Dyskinesis, 5=Aneurysmal, 6=Hyperkinetic, X=Not Visualized (Blank)=Missing
--- NOTE | 2016-05-09 09:45 | Carotid Imaging Report ---
Carotid Duplex Patient Name:Noe Muñiz Order Number:[id number] Procedure Date:05/08/2016 Date:1945ge:70 yrs Gender:Male Lt BP:128 / 88 mmHg Rt.BP:128 / 66 mmHgHeart Rate: Location:[facility] Room #: 3B13 Nurse Advocate:Brodie Singleton RN Referring MD:Carlyle Oliver DO refractory mixer:Nuzhat Hernandez DO Reading MD:Brent Valadez MD Primary Indications:Transient Ischemic Attack Risk Factors Yes/No Hypertension Yes Diabetes No Hypercholesterolemia Yes Smoker Previous Yes Hx of TIA Yes Anticoagulants No Hx of CAD/PTCA Yes Previous Vascular Surgery No Impressions: The bilateral carotid arteries have minimal plaque throughout. Recommendations: Test completed on 05/08/2016 at 3:15:00 pm. Findings Carotid Duplex: Right: The right proximal common carotid artery has a PSV of 77 cm/s and a EDV of 17 cm/s. The right mid common carotid artery has a PSV of 61 cm/s and a EDV of 17 cm/s. The right distal common carotid artery has a PSV of 57 cm/s and a EDV of 16 cm/s. There is nonstenotic plaque in the right bifurcation with a PSV of 44 cm/s and a EDV of 8 cm/s. There is smooth homogeneous plaque. The right proximal internal carotid artery has a PSV of 53 cm/s and a EDV of 15 cm/s. The right mid internal carotid artery has a PSV of 81 cm/s and a EDV of 28 cm/s. The right distal internal carotid artery has a PSV of 93 cm/s and a EDV of 28 cm/s. The right eca has a PSV of 119 cm/s and a EDV of 19 cm/s. The right vertebral artery has a PSV of 36 cm/s and a EDV of 8 cm/s. Left: The left proximal common carotid artery has a PSV of 74 cm/s and a EDV of 18 cm/s. The left mid common carotid artery has a PSV of 77 cm/s and a EDV of 79 cm/s. The left distal common carotid artery has a PSV of 56 cm/s and a EDV of 18 cm/s. There is nonstenotic plaque in the left bifurcation with a PSV of 56 cm/s and a EDV of 18 cm/s. There is smooth homogeneous plaque. The left proximal internal carotid artery has a PSV of 55 cm/s and a EDV of 21 cm/s. The left mid internal carotid artery has a PSV of 65 cm/s and a EDV of 23 cm/s. The left distal internal carotid artery has a PSV of 76 cm/s and a EDV of 24 cm/s. The left eca has a PSV of 80 cm/s and a EDV of 14 cm/s. The left vertebral artery has a PSV of 28 cm/s and a EDV of 9 cm/s. Prior Study: No prior study available for comparison. Carotid Results Right PSV EDV Assessment Proximal CCA 77 17 Normal Mid CCA 61 17 Normal Distal CCA 57 16 Normal Bifurcation 44 8 Non Stenotic Plaque Proximal ICA 53 15 Normal Mid ICA 81 28 Normal Distal ICA 93 28 Normal ECA 119 19 Normal Vertebral Artery 36 8 Normal Left PSV EDV Assessment Proximal CCA 74 18 Normal Mid CCA 77 79 Normal Distal CCA 56 18 Normal Bifurcation 56 18 Non Stenotic Plaque Proximal ICA 55 21 Normal Mid ICA 65 23 Normal Distal ICA 76 24 Normal ECA 80 14 Normal Vertebral Artery 28 9 Normal Ratio's Right ICA/CCA Ratio: 1.52 ICA/CCA Values: 93/61 Left ICA/CCA Ratio: 1.00 ICA/CCA Values: 76/77 Updated by Brent Valadez MD on 05/09/2016 9:39:07 AM electronically signed on 05/09/2016 9:39:20 AM with status of Final
== END 2016-05-08 16:49 | disposition home or self-care (01) | DRG 309 ==
LOC: 3BNU 16:04 → EMEROO 16:04 → 3BNU 18:40 → SUATTDRO 05-07 08:12
PROVIDERS: ADMIT Internal Medicine; ATTEND Internal Medicine